=== PATIENT | male | born 1960 | race Caucasian/White ===

== ENCOUNTER 2022-06-30 17:34 | Emergency (ER) | payer BC, SELFPAY ==
[2022-06-30] VITALS (17 sets, daily range): BP systolic 130–174; BP diastolic 87–110; PULSE 84–95; RESP 18; TEMP 36.6; O2SAT 92–96; BMI 31.2
--- NOTE | 2022-06-30 19:18 | CRLHL7_ITS ---
For Patients: As a result of the Century Cures Act, medical imaging exams and procedure reports are released immediately into your electronic medical record. You may view this report before your referring provider. If you have questions, please contact your health care provider. INDICATION: Acute diffuse abdominal pain. TECHNIQUE: CT abdomen and pelvis acquired with 112 cc Isovue 370 IV contrast. COMPARISON: None. FINDINGS: Lower chest: Unremarkable. Liver: Unremarkable. Normal in size and attenuation. No suspicious masses. Gallbladder and bile ducts: Unremarkable. No stones or inflammation. No biliary dilatation. Pancreas: Unremarkable. No mass or inflammation. Spleen: Unremarkable. Normal in size. No masses. Adrenal glands: Unremarkable. No nodules. Kidneys: Unremarkable. No suspicious masses, stones, or hydronephrosis. GI tract: There are inflamed loops of jejunum with wall edema and moderate fluid retention throughout multiple small bowel loops. No obstructive changes. Colon is unremarkable. Normal appendix. Vasculature: Abdominal aorta is normal in caliber. Mesenteric arteries are patent. Lymph nodes: No lymphadenopathy. Peritoneum/Abdominal Wall: Unremarkable. No sign of mass or infiltration. No free air or significant free fluid. Pelvis: Moderate prostatomegaly. Bones: Unremarkable for age. IMPRESSION: Acute enteritis involving segments of the jejunum. No obstructive changes. No other acute or significant findings. Please note that all CT scans at this facility use dose modulation, iterative reconstruction, and/or weight-based dosing when appropriate to reduce radiation dose to as low as reasonably achievable. Dictated by Behzad Wei MD @ 06/30/2022 9:43:22 PM (Electronically Signed)
--- NOTE | 2022-06-30 19:19 | ED_ITS ---
HPI - General Adult General Chief complaint: Abdominal Pain <Liza Cisneros MD - Last Filed: 07/06/22 11:05> Stated complaint: Vomiting, Stomach pain in upper center <Liza Cisneros MD - Last Filed: 07/06/22 11:05> Time Seen by Provider: 06/30/22 19:02 <Liza Cisneros MD - Last Filed: 07/06/22 11:05> Source: patient <Liza Cisneros MD - Last Filed: 07/06/22 11:05> Mode of arrival: ambulatory <Liza Cisneros MD - Last Filed: 07/06/22 11:05> Limitations: no limitations <Liza Cisneros MD - Last Filed: 07/06/22 11:05> History of Present Illness HPI narrative: 62-year-old male coming in today not feeling well for about 4 days. He complains of diffuse abdominal discomfort. Nothing seems to make it better or worse. It is not associated with eating. He states that he has been having increased amount of stool output that has been formed and not runny. Today he states he has gone to the bathroom 4 times and had 4 solid stools. He denies any increased urinary frequency or urgency, no dysuria. He vomited 1 time today just before walking into the ER otherwise has not been vomiting for the last few days. He denies any fevers that he is aware of. He does continue to eat regularly but the amount he has been eating has been less. He complains of feeling bloated and is abdomen protuberant. He denies any intra-abdominal surgery in the past. States that he had a colonoscopy several years ago and it was normal. He denies any new medications. <Liza Cisneros MD - Last Filed: 07/06/22 11:05> Related Data Home medications: Home Medications Medication Instructions Recorded Confirmed allopurinol 100 mg tablet mg 06/30/22 amlodipine 5 mg tablet mg 06/30/22 atorvastatin 20 mg tablet mg 06/30/22 lisinopril 40 mg tablet mg 06/30/22 <Liza Cisneros MD - Last Filed: 07/06/22 11:05> Allergies/adverse reactions: Allergies Allergy/AdvReac Type Severity Reaction Status Date / Time No Known Drug Allergies Allergy Verified 06/30/22 20:49 <Liza Cisneros MD - Last Filed: 07/06/22 11:05> Review of Systems Status of ROS: Reports: 10 or more systems reviewed and unremarkable except as noted in History and below <Liza Cisneros MD - Last Filed: 07/06/22 11:05> [facility] Social History: Social History Smoking Status: Never smoker Do you use any of these nicotine containing products: None Second hand tobacco smoke exposure: No How often do you have a drink containing alcohol: never AUDIT-C Alcohol total score: 0 Non-prescribed substance use: denies use <Liza Cisneros MD - Last Filed: 07/06/22 11:05> Exam Narrative: Exam Narrative: Well-nourished well-developed patient in no acute distress but does appeared mildly uncomfortable.. Alert and oriented. Answers questions appropriately. Mood and affect are appropriate. Thoughts are goal oriented and rational. No tangential or magical thinking noted. Patient speaks in full sentences without needing to catch his breath. HEENT: Normocephalic atraumatic. Pupils are equally round reactive to light. Extraocular muscles are intact. Conjunctivae are moist without any icterus noted. Moist mucous membranes. Posterior pharynx is normal. Neck is soft without any lymphadenopathy or thyromegaly. No masses are appreciated. Cardiovascular: Heart is regular rate and rhythm S1 and S2 are present without any murmurs. Lungs: Clear to auscultation bilaterally no wheezes rhonchi or rales are ap preciated. Patient takes deep breaths without any discomfort. Abdomen: Protuberant and firm. He has diffuse discomfort with palpation. He has slightly hypoactive bowel sounds. There is no guarding or peritoneal signs. He does have an umbilical hernia which is small and soft and nontender. Extremities: Bilateral lower extremities are without edema. Normal DP and PT pulses. Skin: Well perfused without any obvious rashes. <Liza Cisneros MD - Last Filed: 07/06/22 11:05> Const: Vital Signs, click to edit/add: Vital Signs - 24 hr 06/30/22 17:59 06/30/22 20:01 06/30/22 20:02 Temperature 97.9 F Pulse Rate 86 86 Pulse Rate [Right Pulse Oximeter] 95 Respiratory Rate 18 Blood Pressure 151/93 H Blood Pressure [Ri ght Upper Arm] 174/110 H Pulse Oximetry 96 95 95 Oxygen Delivery Me thod Room Air 06/30/22 20:03 06/30/22 20:15 06/30/22 20:30 Temperature Pulse Rate 85 87 88 Pulse Rate [Right Pulse Oximeter] Respiratory Rate Blood Pressure Blood Pressure [Ri ght Upper Arm] Pulse Oximetry 94 94 94 Oxygen Delivery Me thod 06/30/22 20:32 06/30/22 20:53 06/30/22 21:00 Temperature Pulse Rate 89 90 86 Pulse Rate [Right Pulse Oximeter] Respiratory Rate Blood Pressure 145/91 H Blood Pressure [Ri ght Upper Arm] Pulse Oximetry 92 95 95 Oxygen Delivery Me thod 06/30/22 21:02 06/30/22 21:15 Temperature Pulse Rate 88 87 Pulse Rate [Right Pulse Oximeter] Respiratory Rate Blood Pressure 138/88 Blood Pressure [Ri ght Upper Arm] Pulse Oximetry 94 95 Oxygen Delivery Me thod <Liza Cisneros MD - Last Filed: 07/06/22 11:05> Vital Signs, click to edit/add: Vital Signs - 24 hr 06/30/22 17:59 06/30/22 20:01 06/30/22 20:02 Temperature 97.9 F Pulse Rate 86 86 Pulse Rate [Right Pulse Oximeter] 95 Respiratory Rate 18 Blood Pressure 151/93 H Blood Pressure [Ri ght Upper Arm] 174/110 H Pulse Oximetry 96 95 95 Oxygen Delivery Me thod Room Air 06/30/22 20:03 06/30/22 20:15 06/30/22 20:30 Temperature Pulse Rate 85 87 88 Pulse Rate [Right Pulse Oximeter] Respiratory Rate Blood Pressure Blood Pressure [Ri ght Upper Arm] Pulse Oximetry 94 94 94 Oxygen Delivery Me thod 06/30/22 20:32 06/30/22 20:53 06/30/22 21:00 Temperature Pulse Rate 89 90 86 Pulse Rate [Right Pulse Oximeter] Respiratory Rate Blood Pressure 145/91 H Blood Pressure [Ri ght Upper Arm] Pulse Oximetry 92 95 95 Oxygen Delivery Me thod 06/30/22 21:02 06/30/22 21:15 Temperature Pulse Rate 88 87 Pulse Rate [Right Pulse Oximeter] Respiratory Rate Blood Pressure 138/88 Blood Pressure [Ri ght Upper Arm] Pulse Oximetry 94 95 Oxygen Delivery Me thod <Scott Schwartz MD - Last Filed: 06/30/22 22:19> Course Course Hospital Course: Lab work was unremarkable. Abdominal CT scan pending, care transferred to oncoming physician. <Liza Cisneros MD - Last Filed: 07/06/22 11:05> Vital Signs Vital signs: Initial Vital Signs Temperature 97.9 F 06/30/22 17:59 Temperature Source Temporal Artery Scan 06/30/22 17:59 Pulse Rate 95 06/30/22 17:59 Respiratory Rate 18 06/30/22 17:59 Blood Pressure 174/110 H 06/30/22 17:59 Blood Pressure Mean 131 06/30/22 17:59 Blood Pressure Position Sitting 06/30/22 17:59 Pulse Oximetry 96 06/30/22 17:59 Oxygen Delivery Method 06/30/22 17:59 Vital Signs Temperature 97.9 F 06/30/22 17:59 Pulse Rate 95 06/30/22 17:59 Respiratory Rate 18 06/30/22 17:59 Blood Pressure 174/110 H 06/30/22 17:59 Pulse Oximetry 96 06/30/22 17:59 Oxygen Delivery Method 06/30/22 17:59 Temperature 97.9 F 06/30/22 17:59 Pulse Rate 91 06/30/22 22:15 Respiratory Rate 18 06/30/22 17:59 Blood Pressure 130/87 06/30/22 22:02 Pulse Oximetry 96 06/30/22 22:15 Oxygen Delivery Method 06/30/22 17:59 <Liza Cisneros MD - Last Filed: 07/06/22 11:05> Initial Vital Signs Temperature 97.9 F 06/30/22 17:59 Temperature Source Temporal Artery Scan 06/30/22 17:59 Pulse Rate 95 06/30/22 17:59 Respiratory Rate 18 06/30/22 17:59 Blood Pressure 174/110 H 06/30/22 17:59 Blood Pressure Mean 131 06/30/22 17:59 Blood Pressure Position Sitting 06/30/22 17:59 Pulse Oximetry 96 06/30/22 17:59 Oxygen Delivery Method 06/30/22 17:59 Vital Signs Temperature 97.9 F 06/30/22 17:59 Pulse Rate 95 06/30/22 17:59 Respiratory Rate 18 06/30/22 17:59 Blood Pressure 174/110 H 06/30/22 17:59 Pulse Oximetry 96 06/30/22 17:59 Oxygen Delivery Method 06/30/22 17:59 Temperature 97.9 F 06/30/22 17:59 Pulse Rate 91 06/30/22 22:15 Respiratory Rate 18 06/30/22 17:59 Blood Pressure 130/87 06/30/22 22:02 Pulse Oximetry 96 06/30/22 22:15 Oxygen Delivery Method 06/30/22 17:59 <Scott Schwartz MD - Last Filed: 06/30/22 22:19> Medical Decision Making MDM Narrative Medical decision making narrative: Care for this patient was handed over to me at the end of Dr. Guy's shift. Lab results had returned with normal findings. CT imaging was pending at the end of her shift. These results returned with some nonspecific inflamed loops of jejunum which typify and enteritis. This patient is okay to return home. I did encourage hydration and provided prescriptions for Toradol and Zofran. I instructed him to return if not improving or worsening symptoms happen. Dr. Tyler Schwartz <Scott Schwartz MD - Last Filed: 06/30/22 22:19> Lab Data Labs: Lab Results 06/30/22 06/30/22 06/30/22 Range/Units 19:25 19:45 19:45 WBC 12.66 H (4.50-11.00) K/uL RBC 5.42 (4.30-5.90) m/uL Hgb 16.9 (13.5-17.5) gm/dL Hct 49.4 (37.0-53.0) % MCV 91 (80-100) fL MCH 31 (26-34) pg MCHC 34 (32-36) gm/dL RDW Coeff of Arianna 12.7 (11.5-15.5) % Plt Count 243 (140-440) K/uL Neut % (Auto) 87.3 H (42.0-72.0) % Lymph % (Auto) 6.7 L (20-44) % [place] % (Auto) 5.6 (0.0-11.0) % Eos % (Auto) 0.2 (0.0-7.0) % Baso % (Auto) 0.1 (0.0-3.0) % Neut # (Auto) 11.10 H (1.7-7.0) K/uL Lymph # (Auto) 0.80 L (0.90-2.90) K/uL [place] # (Auto) 0.70 (0.00-0.90) K/UL Eos # (Auto) 0.00 (0.00-0.50) K/uL Baso # (Auto) 0.00 (0.00-0.30) K/uL Abs Immat Gran (auto) 0.00 (0.00-0.30) K/uL Imm/Tot Granulo (auto) 0.1 % ESR 5 (2-15) mm/hr Sodium (135-149) mmol/L Potassium (3.6-5.1) mmol/L Chloride (96-114) mmol/L Carbon Dioxide (20-32) mmol/L BUN (7-30) mg/dL Creatinine (0.5-1.5) mg/dL Estimated Creat Clear Estimated GFR ml/min Glucose (60-115) mg/dL Lactate (0.5-1.9) mmol/L Calcium (8.4-10.6) mg/dL Total Bilirubin (0.1-1.5) mg/dL Direct Bilirubin (0.0-0.5) mg/dL AST (12-35) U/L ALT (4-50) U/L Alkaline Phosphatase (40-150) U/L C-Reactive Protein (0.5-1.0) mg/dL Total Protein (6.0-8.3) g/dL Albumin (3.3-5.0) g/dL Lipase (23-300) U/L Urine Color Yellow (Yellow) Urine Appearance Clear (Clear) Urine pH 5.0 (5.0-8.5) Ur Specific [place] >= 1.030 (1.000-1.030) Urine Protein Negative (Negative) Urine Glucose (UA) Negative (Negative) Urine Ketones Trace A (Negative) Urine Blood Trace-lysed A (Negative) Urine Nitrite Negative (Negative) Urine Bilirubin Negative (Negative) Urine Urobilinogen 0.2 (0.2-1.0) Ur Leukocyte Esterase Negative (Negative) Urine RBC 2-5 A (0-2) Urine WBC 0-2 (0-5) Ur Squamous Epith Cells None (None-Few) Urine Bacteria None (None) Fine Granular Casts Few A (None) 06/30/22 06/30/22 Range/Units 19:45 19:45 WBC (4.50-11.00) K/uL RBC (4.30-5.90) m/uL Hgb (13.5-17.5) gm/dL Hct (37.0-53.0) % MCV (80-100) fL MCH (26-34) pg MCHC (32-36) gm/dL RDW Coeff of Arianna (11.5-15.5) % Plt Count (140-440) K/uL Neut % (Auto) (42.0-72.0) % Lymph % (Auto) (20-44) % [place] % (Auto) (0.0-11.0) % Eos % (Auto) (0.0-7.0) % Baso % (Auto) (0.0-3.0) % Neut # (Auto) (1.7-7.0) K/uL Lymph # (Auto) (0.90-2.90) K/uL [place] # (Auto) (0.00-0.90) K/UL Eos # (Auto) (0.00-0.50) K/uL Baso # (Auto) (0.00-0.30) K/uL Abs Immat Gran (auto) (0.00-0.30) K/uL Imm/Tot Granulo (auto) % ESR (2-15) mm/hr Sodium 141 (135-149) mmol/L Potassium 4.3 (3.6-5.1) mmol/L Chloride 105 (96-114) mmol/L Carbon Dioxide 27 (20-32) mmol/L BUN 23 (7-30) mg/dL Creatinine 1.2 (0.5-1.5) mg/dL Estimated Creat Clear 70.06 Estimated GFR 68 ml/min Glucose 112 (60-115) mg/dL Lactate 1.0 (0.5-1.9) mmol/L Calcium 8.9 (8.4-10.6) mg/dL Total Bilirubin 0.8 (0.1-1.5) mg/dL Direct Bilirubin 0.2 (0.0-0.5) mg/dL AST 23 (12-35) U/L ALT 27 (4-50) U/L Alkaline Phosphatase 88 (40-150) U/L C-Reactive Protein 1.9 H (0.5-1.0) mg/dL Total Protein 7.9 (6.0-8.3) g/dL Albumin 4.8 (3.3-5.0) g/dL Lipase 19 L (23-300) U/L Urine Color (Yellow) Urine Appearance (Clear) Urine pH (5.0-8.5) Ur Specific [place] (1.000-1.030) Urine Protein (Negative) Urine Glucose (UA) (Negative) Urine Ketones (Negative) Urine Blood (Negative) Urine Nitrite (Negative) Urine Bilirubin (Negative) Urine Urobilinogen (0.2-1.0) Ur Leukocyte Esterase (Negative) Urine RBC (0-2) Urine WBC (0-5) Ur Squamous Epith Cells (None-Few) Urine Bacteria (None) Fine Granular Casts (None) <Liza Cisneros MD - Last Filed: 07/06/22 11:05> Lab Results 06/30/22 06/30/22 06/30/22 Range/Units 19:25 19:45 19:45 WBC 12.66 H (4.50-11.00) K/uL RBC 5.42 (4.30-5.90) m/uL Hgb 16.9 (13.5-17.5) gm/dL Hct 49.4 (37.0-53.0) % MCV 91 (80-100) fL MCH 31 (26-34) pg MCHC 34 (32-36) gm/dL RDW Coeff of Arianna 12.7 (11.5-15.5) % Plt Count 243 (140-440) K/uL Neut % (Auto) 87.3 H (42.0-72.0) % Lymph % (Auto) 6.7 L (20-44) % [place] % (Auto) 5.6 (0.0-11.0) % Eos % (Auto) 0.2 (0.0-7.0) % Baso % (Auto) 0.1 (0.0-3.0) % Neut # (Auto) 11.10 H (1.7-7.0) K/uL Lymph # (Auto) 0.80 L (0.90-2.90) K/uL [place] # (Auto) 0.70 (0.00-0.90) K/UL Eos # (Auto) 0.00 (0.00-0.50) K/uL Baso # (Auto) 0.00 (0.00-0.30) K/uL Abs Immat Gran (auto) 0.00 (0.00-0.30) K/uL Imm/Tot Granulo (auto) 0.1 % ESR 5 (2-15) mm/hr Sodium (135-149) mmol/L Potassium (3.6-5.1) mmol/L Chloride (96-114) mmol/L Carbon Dioxide (20-32) mmol/L BUN (7-30) mg/dL Creatinine (0.5-1.5) mg/dL Estimated Creat Clear Estimated GFR ml/min Glucose (60-115) mg/dL Lactate (0.5-1.9) mmol/L Calcium (8.4-10.6) mg/dL Total Bilirubin (0.1-1.5) mg/dL Direct Bilirubin (0.0-0.5) mg/dL AST (12-35) U/L ALT (4-50) U/L Alkaline Phosphatase (40-150) U/L C-Reactive Protein (0.5-1.0) mg/dL Total Protein (6.0-8.3) g/dL Albumin (3.3-5.0) g/dL Lipase (23-300) U/L Urine Color Yellow (Yellow) Urine Appearance Clear (Clear) Urine pH 5.0 (5.0-8.5) Ur Specific [place] >= 1.030 (1.000-1.030) Urine Protein Negative (Negative) Urine Glucose (UA) Negative (Negative) Urine Ketones Trace A (Negative) Urine Blood Trace-lysed A (Negative) Urine Nitrite Negative (Negative) Urine Bilirubin Negative (Negative) Urine Urobilinogen 0.2 (0.2-1.0) Ur Leukocyte Esterase Negative (Negative) Urine RBC 2-5 A (0-2) Urine WBC 0-2 (0-5) Ur Squamous Epith Cells None (None-Few) Urine Bacteria None (None) Fine Granular Casts Few A (None) 06/30/22 06/30/22 Range/Units 19:45 19:45 WBC (4.50-11.00) K/uL RBC (4.30-5.90) m/uL Hgb (13.5-17.5) gm/dL Hct (37.0-53.0) % MCV (80-100) fL MCH (26-34) pg MCHC (32-36) gm/dL RDW Coeff of Arianna (11.5-15.5) % Plt Count (140-440) K/uL Neut % (Auto) (42.0-72.0) % Lymph % (Auto) (20-44) % [place] % (Auto) (0.0-11.0) % Eos % (Auto) (0.0-7.0) % Baso % (Auto) (0.0-3.0) % Neut # (Auto) (1.7-7.0) K/uL Lymph # (Auto) (0.90-2.90) K/uL [place] # (Auto) (0.00-0.90) K/UL Eos # (Auto) (0.00-0.50) K/uL Baso # (Auto) (0.00-0.30) K/uL Abs Immat Gran (auto) (0.00-0.30) K/uL Imm/Tot Granulo (auto) % ESR (2-15) mm/hr Sodium 141 (135-149) mmol/L Potassium 4.3 (3.6-5.1) mmol/L Chloride 105 (96-114) mmol/L Carbon Dioxide 27 (20-32) mmol/L BUN 23 (7-30) mg/dL Creatinine 1.2 (0.5-1.5) mg/dL Estimated Creat Clear 70.06 Estimated GFR 68 ml/min Glucose 112 (60-115) mg/dL Lactate 1.0 (0.5-1.9) mmol/L Calcium 8.9 (8.4-10.6) mg/dL Total Bilirubin 0.8 (0.1-1.5) mg/dL Direct Bilirubin 0.2 (0.0-0.5) mg/dL AST 23 (12-35) U/L ALT 27 (4-50) U/L Alkaline Phosphatase 88 (40-150) U/L C-Reactive Protein 1.9 H (0.5-1.0) mg/dL Total Protein 7.9 (6.0-8.3) g/dL Albumin 4.8 (3.3-5.0) g/dL Lipase 19 L (23-300) U/L Urine Color (Yellow) Urine Appearance (Clear) Urine pH (5.0-8.5) Ur Specific [place] (1.000-1.030) Urine Protein (Negative) Urine Glucose (UA) (Negative) Urine Ketones (Negative) Urine Blood (Negative) Urine Nitrite (Negative) Urine Bilirubin (Negative) Urine Urobilinogen (0.2-1.0) Ur Leukocyte Esterase (Negative) Urine RBC (0-2) Urine WBC (0-5) Ur Squamous Epith Cells (None-Few) Urine Bacteria (None) Fine Granular Casts (None) <Scott Schwartz MD - Last Filed: 06/30/22 22:19> Imaging Data CT scan - abdomen: Radiologist's impression: Acute enteritis involving segments of the jejunum. No obstructive changes. No other acute or significant findings. <Scott Schwartz MD - Last Filed: 06/30/22 22:19> Discharge Plan Discharge Clinical Impression: Enteritis <Liza Cisneros MD - Last Filed: 07/06/22 11:05> Patient Disposition: Home, Self-Care <Liza Cisneros MD - Last Filed: 07/06/22 11:05> Condition: Stable <Liza Cisneros MD - Last Filed: 07/06/22 11:05> Additional Instructions: Take medication as needed and directed. Follow up with MD or return if worsening. <Liza Cisneros MD - Last Filed: 07/06/22 11:05> Prescriptions: No Action atorvastatin 20 mg tablet amlodipine 5 mg tablet allopurinol 100 mg tablet lisinopril 40 mg tablet <Liza Cisneros MD - Last Filed: 07/06/22 11:05> Follow Up/Referrals: Dale Alvarez MD [Referring] - <Liza Cisneros MD - Last Filed: 07/06/22 11:05> Stand Alone Forms: MyHealth Info Instructions <Liza Cisneros MD - Last Filed: 07/06/22 11:05>
[2022-06-30 19:53] LABS: Basophils Percent Auto 0.1 % (0.0-3.0); Eosinophils Percent Auto 0.2 % (0.0-7.0); Hematocrit 49.4 % (37.0-53.0); Hemoglobin* 16.9 gm/dL (13.5-17.5); Immature Granulocytes Pct Auto 0.1 %; Lymphocytes Percent Auto 6.7 % (20-44); Mean Corpuscular HGB Conc 34 gm/dL (32-36); Mean Corpuscular Hemoglobin 31 pg (26-34); Mean Corpuscular Volume 91 fL (80-100); Monocytes Percent Auto 5.6 % (0.0-11.0); Neutrophils Percent Auto 87.3 % (42.0-72.0); Platelet Count* 243 K/uL (140-440); RDW Coefficient of Variation % 12.7 % (11.5-15.5); Red Blood Count 5.42 m/uL (4.30-5.90); White Blood Count* 12.66 K/uL (4.50-11.00)
[2022-06-30 19:53] LABS: Appearance Urine Clear (Clear); Bilirubin Urine Negative (Negative); Blood Urine Trace-lysed (Negative); Color Urine Yellow (Yellow); Glucose Urine Negative (Negative); Ketones Urine Trace (Negative); Leukocyte Esterase Urine Negative (Negative); Nitrite Urine Negative (Negative); Protein Urine Negative (Negative); Specific Gravity Urine >= 1.030 (1.000-1.030); Urobilinogen Urine 0.2 (0.2-1.0)
[2022-06-30 19:56] LABS: Slide Review Reflex No
[2022-06-30 20:09] LABS: WBC Urine 0-2 (0-5)
[2022-06-30 20:10] LABS: Fine Granular Casts Urine Few
[2022-06-30 20:25] LABS: Albumin* 4.8 g/dL (3.3-5.0); Chloride* 105 mmol/L (96-114); Sodium* 141 mmol/L (135-149)
[2022-06-30 20:26] LABS: Potassium* 4.3 mmol/L (3.6-5.1)
[2022-06-30 20:28] LABS: Alkaline Phosphatase* 88 U/L (40-150); Aspartate Amino Transferase* 23 U/L (12-35); Bilirubin Direct* 0.2 mg/dL (0.0-0.5); Bilirubin Total* 0.8 mg/dL (0.1-1.5); Blood Urea Nitrogen* 23 mg/dL (7-30); Carbon Dioxide* 27 mmol/L (20-32); Creatinine* 1.2 mg/dL (0.5-1.5); Est. Creatinine Clearance* 70.06; Estimated Glomerular Filt Rate 68 ml/min; Total Protein* 7.9 g/dL (6.0-8.3)
[2022-06-30 20:29] LABS: Alanine Aminotransferase* 27 U/L (4-50); Calcium* 8.9 mg/dL (8.4-10.6); Glucose* 112 mg/dL (60-115); Lipase* 19 U/L (23-300)
[2022-06-30 20:31] LABS: C Reactive Protein* 1.9 mg/dL (0.5-1.0)
[2022-06-30 20:37] LABS: Erythrocyte SedimentationRate* 5 mm/hr (2-15)
== END 2022-06-30 22:26 | disposition home or self-care (01) ==
PROVIDERS: Emergency Provider Family Medicine; PCP Surgery
DX: K52.9 Noninfective gastroenteritis and colitis, unspecified (principal)
CPT/HCPCS: 36415; 74177; 80048; 80076; 81001; 83605; 83690; 85025; 85651; 86140; 87086; 99284; Q9967

== ENCOUNTER 2023-10-17 08:00 | Outpatient (RCR) | payer BC, SELFPAY | END 2024-02-14 23:59 | disposition home or self-care (01) | PROVIDERS: PCP Surgery; Visit Provider Internal Medicine | DX: M25.562 Pain in left knee (principal); M54.50 Low back pain, unspecified; Z51.89 Encounter for other specified aftercare; G89.29 Other chronic pain | CPT/HCPCS: 97110; 97161 ==

== ENCOUNTER 2024-04-12 09:00 | Outpatient (RCR) | payer BC, SELFPAY | END 2024-08-10 23:59 | disposition home or self-care (01) | PROVIDERS: PCP Surgery; Visit Provider Physician Assistant Surgical | DX: D33.4 Benign neoplasm of spinal cord (principal); Z74.09 Other reduced mobility; R29.898 Other symptoms and signs involving the musculoskeletal system; Z51.89 Encounter for other specified aftercare | CPT/HCPCS: 97110; 97162 ==